=== PATIENT | female | born 1980 | race Caucasian/White ===

== ENCOUNTER → 2020-05-10 | Outpatient (CLI) | payer BC | END | disposition home or self-care (01) | LOC: LABWHC1 11:30 | PROVIDERS: ATTEND Pediatrics | DX: Z20.828 Contact with and (suspected) exposure to other viral communicable diseases (principal) | CPT/HCPCS: U0003; C9803 ==

== ENCOUNTER → 2020-09-05 | Outpatient (CLI) | payer BC | END | disposition home or self-care (01) | LOC: LABWHC1 09:05 | PROVIDERS: ATTEND Pediatrics | DX: Z20.828 Contact with and (suspected) exposure to other viral communicable diseases (principal) | CPT/HCPCS: U0003; C9803 ==

== ENCOUNTER → 2020-09-12 | Outpatient (CLI) | payer BC | END | disposition home or self-care (01) | LOC: LABWHC1 11:49 | PROVIDERS: ATTEND Pediatrics | DX: U07.1 COVID-19 (principal) | CPT/HCPCS: U0003; C9803 ==

== ENCOUNTER → 2020-09-26 | Outpatient (CLI) | payer BC | END | disposition home or self-care (01) | LOC: LABWHC1 16:05 | PROVIDERS: ATTEND Pediatrics | DX: U07.1 COVID-19 (principal) | CPT/HCPCS: U0003; C9803 ==

== ENCOUNTER → 2020-10-24 | Outpatient (CLI) | payer BC | END | disposition home or self-care (01) | LOC: LABWHC1 10:29 | PROVIDERS: ATTEND Pediatrics | DX: U07.1 COVID-19 (principal) | CPT/HCPCS: U0003; C9803 ==

== ENCOUNTER 2024-08-23 08:19 | Emergency (ER) | payer BC ==
[2024-08-23 08:23] VITALS: TEMP 98.8
--- NOTE | 2024-08-23 08:45 | ED ---
GI Bleed HPI - General Chief complaint: GI Bleed Stated complaint: Abdominal Pain Time Seen by Provider: 08/23/24 08:43 Source: patient, RN notes reviewed Mode of arrival: ambulatory Limitations: no limitations - History of Present Illness Initial comments: 44-year-old female presented to the ER with a chief complaint of abdominal pain and rectal bleeding. Patient states around 1 AM she started to experience a sharp periumbilical and lower abdominal pain. Patient reports she went to the bathroom and noticed a large amount of bright red blood in her stool. She does state her stool was mildly loose. She states throughout the morning she has had continued to have bowel movements passing a teaspoon of blood or movement. She denies blood thinner use. She reports nausea denies vomiting. No fevers. No urinary complaints. No significant past medical history. No other complaints. - Related Data Home Medications Medication Instructions Recorded Confirmed ALPRAZolam [Xanax] 0.25 mg PO BID PRN 08/23/24 08/23/24 Cyanocobalamin (Vitamin B-12) 1,000 mcg PO DAILY 08/23/24 08/23/24 [Vitamin B-12] Ergocalciferol (Vitamin D2) 1,250 mcg PO WE 08/23/24 08/23/24 [Drisdol (50,000 Iu)] Semaglutide [Wegovy] 1.7 mg SQ WE 08/23/24 08/23/24 buPROPion XL [Wellbutrin XL] 300 mg PO DAILY 08/23/24 08/23/24 Previous Rx's Medication Instructions Recorded Amoxic-Pot Clav 875-125Mg 1 tab PO Q12HR 5 Days #10 tab 08/23/24 [Augmentin 875-125] Dicyclomine [Bentyl] 20 mg PO TID #14 tablet 08/23/24 Ondansetron Odt [Zofran Odt] 4 mg PO Q8HR PRN #15 tab 08/23/24 Allergies Allergy/AdvReac Type Severity Reaction Status Date / Time No Known Allergies Allergy Verified 08/23/24 09:17 Review of Systems ROS Statement: Those systems with pertinent positive or pertinent negative responses have been documented in the HPI. ROS Other: All systems not noted in ROS Statement are negative. Past Medical History Past Medical History: No Reported History History of Any Multi-Drug Resistant Organisms: None Reported Past Surgical History: Tubal Ligation Past Psychological History: Anxiety Smoking Status: Never smoker Past Alcohol Use History: Occasional Past Drug Use History: None Reported General Exam Limitations: no limitations General appearance: alert, in no apparent distress Respiratory exam: Present: normal lung sounds bilaterally. Absent: respiratory distress, wheezes, rales, rhonchi, stridor Cardiovascular Exam: Present: normal rhythm, tachycardia, normal heart sounds GI/Abdominal exam: Present: soft, tenderness (RLQ/umbilical), normal bowel sounds Rectal exam: Present: normal inspection, normal rectal tone (No gross blood on exam.) Neurological exam: Present: alert, oriented X3, CN II-XII intact Skin exam: Present: warm, dry, intact, normal color. Absent: rash Course Vital Signs 08/23/24 08/23/24 08/23/24 08:20 09:26 10:54 Temperature 98.8 F Pulse Rate 117 H 94 92 Respiratory 18 20 20 Rate Blood Pressure 133/90 116/74 122/81 O2 Sat by Pulse 100 100 100 Oximetry 08/23/24 11:47 Temperature Pulse Rate 92 Respiratory 20 Rate Blood Pressure 128/78 O2 Sat by Pulse 100 Oximetry Medical Decision Making - Medical Decision Making Was pt. sent in by a medical professional or institution (, PA, ASSISTED LIVING HOME DIRECTOR, urgent care, hospital, or care home...) When possible be specific @ -No Did you speak to anyone other than the patient for history (EMS, parent, family, police, friend...)? What history was obtained from this source @ -No Did you review nursing and triage notes (agree or disagree)? Why? @ -I reviewed and agree with nursing and triage notes Were old charts reviewed (outside hosp., previous admission, EMS record, old EKG, old radiological studies, urgent care reports/EKG's, care home records)? Report findings @ -No old charts were reviewed Differential Diagnosis (chest pain, altered mental status, abdominal pain women, abdominal pain men, vaginal bleeding, weakness, fever, dyspnea, syncope, headache, dizziness, GI bleed, back pain, seizure, CVA, palpatations, mental health, musculoskeletal)? @ -Differential GI Bleed:Esophageal varices, aortoenteric fistula, Aishwarya-We iss, gastritis, peptic ulcer disease, diverticulosis, inflammatory bowel disease, hemorrhoids, fissure, colitis, malignancy, Meckel's diverticulum, this is not meant to be an all-inclusive list. EKG interpreted by me (3pts min.). @ -None done X-rays interpreted by me (1pt min.). @ -None done CT interpreted by me (1pt min.). @ -CT abdomen pelvis showing a curvilinear enhancement measuring 2.5 cm within anterior right adnexa likely related to the ovary. Adjacent mild to moderate pelvic free fluid. Mild circumferential wall thickening at the splenic flexure of the colon. Rounded prominence and hypoenhancement at the uterine cervix. 2.0 cm right anterior intramural focal uterine fibroid. U/S interpreted by me (1pt. min.). @ -Transvaginal ultrasound showing a 2.4 cyst of right ovary. No evidence of ovarian torsion. 2.1 cm intramural focal fibroid anterior uterine body. En dometrial stripe thickness 1.1 cm. Mild anterior pelvic free fluid. What testing was considered but not performed or refused? (CT, X-rays, U/S, labs)? Why? @ -None What meds were considered but not given or refused? Why? @ -None Did you discuss the management of the patient with other professionals (professionals i.e. , PA, ASSISTED LIVING HOME DIRECTOR, lab, RT, psych nurse, community mental health social worker, probate lawyer, teacher, credit compliance officer, test case developer)? Give summary @ -No Was smoking cessation discussed for >3mins.? @ -No Was critical care preformed (if so, how long)? @ -No Were there social determinants of health that impacted care today? How? (Homelessness, low income, unemployed, alcoholism, drug addiction, tr ansportation, low edu. Level, literacy, decrease access to med. care, residential, rehab)? @ -No Was there de-escalation of care discussed even if they declined (Discuss DNR or withdrawal of care, Hospice)? DNR status @ -No What co-morbidities impacted this encounter? (DM, HTN, Smoking, COPD, CAD, Cancer, CVA, ARF, Chemo, Hep., AIDS, mental health diagnosis, sleep apnea, morbid obesity)? @ -None Was patient admitted / discharged? Hospital course, mention meds given and route, prescriptions, significant lab abnormalities, going to OR and other pertinent info. @ -Discharge. 44-year-old female presenting to the ER with a chief complaint of rectal bleeding and abdominal pain. History and physical exam completed. Vital stable. Patient in no signs of acute distress. Exam remarkable for tenderness to lower abdomen with normal bowel sounds. No rebound or guarding. Rectal exam performed and chaperoned by January,. Normal inspection with no gross blood on exam. Laboratory studies and CT will be obtained, patient is agreeable. Laboratory studies remarkable for a WBC of 13.4 with a left shift. Hemoglobin stable at 14.1. CMP unremarkable. Urinalysis contaminated with 5 epithelial cells and 15 WBCs. Urine will be sent for culture. Stool occult positive. CT showing concerning signs of colitis and abnormality to right adnexa. Due to this transvaginal ultrasound ordered and showing a 2.4 cyst of right ovary. No evidence of ovarian torsion. Intramural focal fibroid. Patient received symptomatic control in the ER, with improvement. Upon reevaluation, patient resting comfortably in exam room no signs of acute distress. Results discussed with patient, all questions answered. Patient will be started on Augmentin, zofran and Bentyl for colitis. Bleeding believed to be due to from colitis. Patient is stable for discharge. Strict return parameters discussed. Patient discharged in stable condition with follow-up to PCP and GI, referral given. Patient verbally expressed understanding and agreement with care plan. Case discussed with ED attending, . Undiagnosed new problem with uncertain prognosis? @ -No Drug Therapy requiring intensive monitoring for toxicity (Heparin, Nitro, Insulin, Cardizem)? @ -No Were any procedures done? @ -No Diagnosis/symptom? @ -Colitis/ovarian cyst/uterine fibroid Acute, or Chronic, or Acute on Chronic? @ -Acute Uncomplicated (without systemic symptoms) or Complicated (systemic symptoms)? @ -Uncomplicated Side effects of treatment? @ -No Exacerbation, Progression, or Severe Exacerbation? @ -No Poses a threat to life or bodily function? How? (Chest pain, [place], [place], pneumonia, PE, COPD, DKA, ARF, appy, cholecystitis, CVA, Diverticulitis, Homicidal, Suicidal, threat to staff... and all critical care pts) @ -No - Lab Data Result diagrams: 08/23/24 08:54 08/23/24 08:54 Lab Results 08/23/24 08/23/24 08/23/24 Range/Units 08:54 08:54 08:54 WBC 13.4 H (3.8-10.6) k/uL RBC 4.80 (3.80-5.40) m/uL Hgb 14.1 (11.4-16.0) gm/dL Hct 42.9 (34.0-46.0) % MCV 89.3 (80.0-100.0) fL MCH 29.3 (25.0-35.0) pg MCHC 32.8 (31.0-37.0) g/dL RDW 12.3 (11.5-15.5) % Plt Count 329 (150-450) k/uL MPV 9.6 Neutrophils % 73 % Lymphocytes % 18 % Monocytes % 6 % Eosinophils % 1 % Basophils % 1 % Neutrophils # 9.8 H (1.3-7.7) k/uL Lymphocytes # 2.5 (1.0-4.8) k/uL Monocytes # 0.8 (0-1.0) k/uL Eosinophils # 0.1 (0-0.7) k/uL Basophils # 0.1 (0-0.2) k/uL Sodium (137-145) mmol/L Potassium (3.5-5.1) mmol/L Chloride (98-107) mmol/L Carbon Dioxide (22-30) mmol/L Anion Gap mmol/L BUN (7-17) mg/dL Creatinine (0.52-1.04) mg/dL Est GFR (CKD-EPI)AfAm (>60 ml/min/1.73 sqM) Est GFR (CKD-EPI)NonAf (>60 ml/min/1.73 sqM) Glucose (74-99) mg/dL Plasma Lactic Acid Tayo (0.7-2.0) mmol/L Calcium (8.4-10.2) mg/dL Total Bilirubin (0.2-1.3) mg/dL AST (14-36) U/L ALT (4-34) U/L Alkaline Phosphatase (38-126) U/L Total Protein (6.3-8.2) g/dL Albumin (3.5-5.0) g/dL Amylase (30-110) U/L Lipase (23-300) U/L Urine Color Yellow Urine Appearance Cloudy H (Clear) Urine pH 5.0 (5.0-8.0) Ur Specific [place] 1.025 (1.001-1.035) Urine Protein Trace H (Negative) Urine Glucose (UA) Negative (Negative) Urine Ketones Negative (Negative) Urine Blood Trace H (Negative) Urine Nitrite Negative (Negative) Urine Bilirubin Negative (Negative) Urine Urobilinogen <2.0 (<2.0) mg/dL Ur Leukocyte Esterase Trace H (Negative) Urine RBC 3 (0-5) /hpf Urine WBC 15 H (0-5) /hpf Ur Squamous Epith Cells 5 H (0-4) /hpf Urine Mucus Many H (None) /hpf Urine HCG, Qual Not Detected (Not Detectd) Stool Occult Blood (Negative) 08/23/24 08/23/24 08/23/24 Range/Units 08:54 08:54 09:24 WBC (3.8-10.6) k/uL RBC (3.80-5.40) m/uL Hgb (11.4-16.0) gm/dL Hct (34.0-46.0) % MCV (80.0-100.0) fL MCH (25.0-35.0) pg MCHC (31.0-37.0) g/dL RDW (11.5-15.5) % Plt Count (150-450) k/uL MPV Neutrophils % % Lymphocytes % % Monocytes % % Eosinophils % % Basophils % % Neutrophils # (1.3-7.7) k/uL Lymphocytes # (1.0-4.8) k/uL Monocytes # (0-1.0) k/uL Eosinophils # (0-0.7) k/uL Basophils # (0-0.2) k/uL Sodium 138 (137-145) mmol/L Potassium 4.0 (3.5-5.1) mmol/L Chloride 108 H (98-107) mmol/L Carbon Dioxide 20 L (22-30) mmol/L Anion Gap 10 mmol/L BUN 9 (7-17) mg/dL Creatinine 0.82 (0.52-1.04) mg/dL Est GFR (CKD-EPI)AfAm >90 (>60 ml/min/1.73 sqM) Est GFR (CKD-EPI)NonAf 88 (>60 ml/min/1.73 sqM) Glucose 95 (74-99) mg/dL Plasma Lactic Acid Tayo 1.0 (0.7-2.0) mmol/L Calcium 9.7 (8.4-10.2) mg/dL Total Bilirubin 0.5 (0.2-1.3) mg/dL AST 22 (14-36) U/L ALT 14 (4-34) U/L Alkaline Phosphatase 40 (38-126) U/L Total Protein 7.6 (6.3-8.2) g/dL Albumin 4.7 (3.5-5.0) g/dL Amylase 55 (30-110) U/L Lipase 75 (23-300) U/L Urine Color Urine Appearance (Clear) Urine pH (5.0-8.0) Ur Specific [place] (1.001-1.035) Urine Protein (Negative) Urine Glucose (UA) (Negative) Urine Ketones (Negative) Urine Blood (Negative) Urine Nitrite (Negative) Urine Bilirubin (Negative) Urine Urobilinogen (<2.0) mg/dL Ur Leukocyte Esterase (Negative) Urine RBC (0-5) /hpf Urine WBC (0-5) /hpf Ur Squamous Epith Cells (0-4) /hpf Urine Mucus (None) /hpf Urine HCG, Qual (Not Detectd) Stool Occult Blood Positive H (Negative) - Radiology Data Radiology results: report reviewed, image reviewed Disposition Clinical Impression: Colitis, Uterine fibroid Disposition: HOME SELF-CARE Condition: Stable Instructions (If sedation given, give patient instructions): Gastrointestinal Bleeding (ED), Colitis (ED) Additional Instructions: Complete full course of Augmentin. Take Bentyl for pain along with [id number] ibuprofen and Tylenol. Follow-up with PCP in the next 1 to 2 days. I also recommend close follow-up with GI, Dr. Woodward. Return to the ER for any new or worsening concerns. Prescriptions: Amoxic-Pot Clav 875-125Mg [Augmentin 875-125] 1 tab PO Q12HR 5 Days #10 tab Dicyclomine [Bentyl] 20 mg PO TID #14 tablet Ondansetron Odt [Zofran Odt] 4 mg PO Q8HR PRN #15 tab PRN Reason: Nausea Is patient prescribed a controlled substance at d/c from ED?: No Referrals: Mahesh Lozano MD [Primary Care Provider] - 1-2 days Patsy Woodward MD [STAFF PHYSICIAN] - 1-2 days Time of Disposition: 12:36
[2024-08-23] MEDS: SODIUM CHLORIDE 0.9% 1,000 ML IV STA (09:02)
[2024-08-23] MEDS: ONDANSETRON 4 MG/2 ML VIAL IVP STA (09:03)
[2024-08-23] MEDS: HYDROmorphone 0.5 MG/0.5 ML SYRINGE IVP STA ×2 (09:04→12:01)
[2024-08-23 09:07] LABS: Basophils # (A) 0.1 k/uL (0-0.2); Basophils % (A) 1 %; Eosinophils # (A) 0.1 k/uL (0-0.7); Eosinophils % (A) 1 %; HCT 42.9 % (34.0-46.0); HGB 14.1 gm/dL (11.4-16.0); Lymphocytes # (A) 2.5 k/uL (1.0-4.8); Lymphocytes % (A) 18 %; MCH 29.3 pg (25.0-35.0); MCHC 32.8 g/dL (31.0-37.0); MCV 89.3 fL (80.0-100.0); Mean Platelet Volume 9.6; Monocytes # (A) 0.8 k/uL (0-1.0); Monocytes % (A) 6 %; Neutrophils # (A) 9.8 k/uL (1.3-7.7); Neutrophils % (A) 73 %; Platelet Count 329 k/uL (150-450); RDW 12.3 % (11.5-15.5); WBC 13.4 k/uL (3.8-10.6)
[2024-08-23 09:21] LABS: Appearance,Urine Cloudy (Clear); Bilirubin,Urine Negative (Negative); Blood,Urine Trace (Negative); Color,Urine Yellow; Glucose,Urine (UA) Negative (Negative); Ketones,Urine Negative (Negative); Leukocyte Esterase,Urine Trace (Negative); Mucus,Urine Many /hpf; Nitrite,Urine Negative (Negative); Protein,Urine Trace (Negative); RBC,Urine 3 /hpf (0-5); Specific Gravity,Urine 1.025 (1.001-1.035); Squamous Epithelial Cell,Urine 5 /hpf (0-4); Urobilinogen,Urine <2.0 mg/dL (<2.0); WBC,Urine 15 /hpf (0-5)
[2024-08-23 09:25] LABS: ALT 14 U/L (4-34); AST 22 U/L (14-36); African American GFR (CKD) >90 (>60 ml/min/1.73 sqM); Albumin 4.7 g/dL (3.5-5.0); Alkaline Phosphatase 40 U/L (38-126); Amylase 55 U/L (30-110); Anion Gap 10 mmol/L; Blood Urea Nitrogen 9 mg/dL (7-17); Calcium 9.7 mg/dL (8.4-10.2); Carbon Dioxide 20 mmol/L (22-30); Chloride 108 mmol/L (98-107); Glucose 95 mg/dL (74-99); Lipase 75 U/L (23-300); Non-African American GFR(CKD) 88 (>60 ml/min/1.73 sqM); Sodium 138 mmol/L (137-145); Total Bilirubin 0.5 mg/dL (0.2-1.3); Total Protein 7.6 g/dL (6.3-8.2)
[2024-08-23 09:28] VITALS: RESP 20
--- NOTE | 2024-08-23 09:52 | CT ---
EXAMINATION TYPE: CT abdomen pelvis w con DATE OF EXAM: 08/23/2024 COMPARISON: NONE HISTORY: 44-year-old female right lower quadrant, umbilical abdominal pain, rectal bleeding bright re d starting this morning TECHNIQUE: Contiguous axial scanning of the abdomen and pelvis following administration of 100 ml Iso tiffany-370 IV contrast. Delayed images through the kidneys and coronal/sagittal reconstructions perform ed. CT DLP: 734.6 mGycm Automated exposure control for dose reduction was used. FINDINGS: Heart normal size without pericardial effusion. Lung bases clear without pleural effusion. Some focal fat along the anterior falciform ligament. No other focal liver lesion or biliary ductal d ilatation. Portal venous system is patent. Gallbladder, adrenal glands, kidneys, spleen, and pancreas within normal limits. No dilated small bowel or free air. Some prominent fluid-filled small bowel loops mid abdomen which may be transient. Normal appendix. The colon is largely collapsed. Some mild circumferential wall thickening along the splenic flexure of the colon likely due to under distention, for example, coronal image 39 and 61. N o perisplenic inflammatory change. Bladder not distended. Uterus anteverted. Some rounded prominence and differential enhancement in the region of the cervix probably physiologic change. There is a subtle round 2 cm hypodensity anterior uterine body located within the myometrium suggestive of a focal fibroid. There is mild pelvic free f luid. Crescentic curvilinear enhancement likely related to the right ovary measuring 2.5 cm in the an terior right adnexa with adjacent anterior free fluid. Left ovary not clearly delineated from adjacen t bowel. Small pelvic phleboliths. Bones: No osseous destructive process. IMPRESSION: 1. CURVILINEAR ENHANCEMENT MEASURING 2.5 CM WITHIN THE ANTERIOR RIGHT ADNEXA LIKELY RELATING TO THE O VARY. ADJACENT MILD TO MODERATE PELVIC FREE FLUID. CORRELATE FOR A RUPTURED FOLLICLE/CYST. 2. MILD CIRCUMFERENTIAL WALL THICKENING AT THE SPLENIC FLEXURE OF THE COLON MAY BE DUE TO UNDERDISTEN TION OR A NONSPECIFIC MILD COLITIS. CLINICALLY CORRELATE. 3. Rounded prominence and hypoenhancement at the uterine cervix probably physiologic change. Correlat e with routine results on Pap smear to exclude an underlying cervical lesion. 4. Incidental 2.0 cm right anterior intramural focal uterine fibroid. [facility], , 08/23/2024 9:50 AM
[2024-08-23 10:55] VITALS: PULSE 92
[2024-08-23 11:49] VITALS: BP 128/78
--- NOTE | 2024-08-23 11:55 | US ---
EXAMINATION TYPE: US transvaginal plus Dopplers DATE OF EXAM: 08/23/2024 COMPARISON: CT today CLINICAL INDICATION: Female, 44 years old with history of abd pain; RLQ pain; CT results TECHNIQUE: Transvaginal (TV. Color Doppler spectral waveform analysis of the ovarian arteries and ve ins. FINDINGS: Date of LMP: 07/29/2024 EXAM MEASUREMENTS: Uterus: 8.9 x 4.6 x 5.3 cm Endometrial Stripe: 1.1 cm Right Ovary: 4.4 x 2.6 x 3.1 cm Left Ovary: 1.7 x 1.5 x 1.7 cm 1. Uterus: Anteverted. Solid, heterogenous lesion of the right uterus measuring 2.0 x 2.1 x 2.1cm 2. Endometrium: wnl 3. Right Ovary: Anechoic area measuring 2.4 x 2.1 x 2.2cm 4. Left Ovary: wnl with follicular change. Spectral, color and waveform doppler imaging shows good arterial and venous flow within the ovaries ; there is no evidence for ovarian torsion. 5. Bilateral Adnexa: wnl 6. Posterior cul-de-sac: Mild anterior pelvic free fluid. IMPRESSION: 1. A 2.4 cm cyst of the right ovary. 2. No sonographic evidence for ovarian torsion. 3. Normal follicular change in the left ovary. 4. A 2.1 cm intramural focal fibroid anterior uterine body is confirmed. 5. Endometrial stripe thickness 1.1 cm should correspond to the secretory phase of the menstrual cycl e. 6. Mild anterior pelvic free fluid, probably physiologic or relating to the right ovarian cyst as sug gested on CT. [facility], , 08/23/2024 11:53 AM
== END 2024-08-23 12:48 | disposition home or self-care (01) ==
LOC: EC 08:19
CPT/HCPCS: 36415; 74177; 76830; 80053; 81001; 81025; 82150; 82272; 83605; 83690; 85025; 87086; 93975; 96361; 96374; 96375; 96376; 99285